=== PATIENT | male | born 1980 | race African-American/Black ===

== ENCOUNTER 2017-05-06 18:41 | Observation (INO) ==
[2017-05-06] MEDS ORDERED: MORPHINE 2 MG/1 ML SYRINGE ONE (19:37)
[2017-05-06] MEDS ORDERED: ONDANSETRON 4 MG/2 ML VIAL ONE (19:37)
[2017-05-06] MEDS ORDERED: MORPHINE 2 MG/1 ML SYRINGE IV STA (19:37)
[2017-05-06] MEDS ORDERED: ONDANSETRON 4 MG/2 ML VIAL IV STA (19:37)
[2017-05-06] MEDS ORDERED: DEXAMETHASONE 4 MG/1 ML VIAL ONE (19:38)
[2017-05-06 19:41] LABS: Basophils % 0.3 % (0.0-0.8); Hematocrit 45.7 VOL% (42.0-52.0); Hemoglobin 16.3 GM/DL (14.0-18.0); Immature Granulocytes % 0.5 %; Immature Granulocytes Absolute 0.06 #; Lymphocytes # 1.6 10*3/uL (1.4-4.0); Lymphocytes % 13.5 % (21.2-54.2); Mean Corpuscular HGB Conc 35.7 GM/DL (32-36); Mean Corpuscular Hemoglobin 33 PG (27-34); Mean Corpuscular Volume 91.6 FL (87-102); Mean Platelet Volume 9.4 FL (9.6-12.0); Monocytes # 1.5 10*3/uL (0.11-0.8); Neutrophils # 8.4 10*3/uL (1.4-7.4); Neutrophils % 72.7 % (38.7-73.9); Platelet Count 286 T/CUMM (130-400); Red Blood Count 4.99 MC/CUMM (3.8-5.5); Red Cell Distribution Width 13.7 % (9.3-17.3); White Blood Count 11.6 T/CUMM (4-12)
[2017-05-06 20:05] LABS: Calcium 8.5 MG/DL (8.5-10.1); Osmolality,Calculated 263.4 MOS/KG (273-304); Potassium 3.7 MMOL/L (3.5-5.1)
[2017-05-06] MEDS ORDERED: ONDANSETRON 4 MG/2 ML VIAL IV PRN (20:51)
[2017-05-06] MEDS ORDERED: MORPHINE 2 MG/1 ML SYRINGE IV PRN (20:51)
[2017-05-06] MEDS ORDERED: ACETAMINOPHEN 325 MG TABLET PO PRN (20:51)
[2017-05-06] MEDS: DEXTROSE 5% NACL 0.45% 1,000 ML IV SCH (21:40)
[2017-05-06] MEDS: PIPERACILLIN/TAZOBACTAM 3,375 MG in SODIUM CHLORIDE 0.9% 100 ML IV SCH (22:19)
[2017-05-07] MEDS: DEXTROSE 5% NACL 0.45% 1,000 ML IV SCH (04:23)
[2017-05-07] MEDS: PIPERACILLIN/TAZOBACTAM 3,375 MG in SODIUM CHLORIDE 0.9% 100 ML IV SCH ×3 (06:40→21:29)
[2017-05-07] MEDS ORDERED: INFLUENZA VIRUS VACCINE 0.5 ML SYRINGE IM ONE (09:00)
[2017-05-07] MEDS ORDERED: BUPIVACAINE 0.25% 50 ML VIAL ONE (09:08)
[2017-05-07] MEDS ORDERED: MIDAZOLAM 2 MG/2 ML VIAL ONE (09:41)
[2017-05-07] MEDS ORDERED: PROPOFOL 200 MG/20 ML VIAL IV ONE (09:41)
[2017-05-07] MEDS ORDERED: fentaNYL 100 MCG/2 ML VIAL ONE (09:41)
[2017-05-07] MEDS ORDERED: KETAMINE 500 MG/10 ML VIAL ONE (09:42)
[2017-05-07] MEDS: HYDROmorphone 2 MG/1 ML VIAL IV PRN ×2 (10:00→10:16)
[2017-05-07] MEDS ORDERED: HYDROmorphone 2 MG/1 ML VIAL ONE (10:04)
[2017-05-07] MEDS ORDERED: ONDANSETRON 4 MG/2 ML VIAL IV PRN (10:07)
[2017-05-07] MEDS: PANTOPRAZOLE 40 MG TABLET PO SCH (10:38)
[2017-05-07] MEDS: SODIUM CHLORIDE 0.9% 1,000 ML IV SCH ×2 (11:19→22:26)
[2017-05-08] MEDS: SODIUM CHLORIDE 0.9% 1,000 ML IV SCH (02:34)
[2017-05-08 05:24] LABS: Calcium 8.2 MG/DL (8.5-10.1); Osmolality,Calculated 274.5 MOS/KG (273-304); Potassium 3.7 MMOL/L (3.5-5.1)
[2017-05-08] MEDS: PIPERACILLIN/TAZOBACTAM 3,375 MG in SODIUM CHLORIDE 0.9% 100 ML IV SCH (05:43)
[2017-05-08] MEDS: PANTOPRAZOLE 40 MG TABLET PO SCH (08:48)
[2017-05-08 11:15] VITALS: BP 129/68
== END 2017-05-08 12:48 | disposition home or self-care (01) ==
LOC: N.ED 18:41 → N.EDINP 18:41 → N.3E 19:56
PROVIDERS: ADMIT Surgery; ATTEND Surgery